=== PATIENT | female | born 1990 | race Caucasian/White ===

== ENCOUNTER 2019-08-24 19:02 | Emergency (ER) | payer OTHER, SELFPAY ==
[2019-08-24 19:14] VITALS: BP 103/67; PULSE 107; RESP 20; TEMP 38.3; O2SAT 98
--- NOTE | 2019-08-24 19:41 | ED.NAVMDI ---
HPI - Nausea/Vomiting/Diarrhea General Chief complaint: Upper Respiratory Infection Stated complaint: Throwing Up Time Seen by Provider: 08/24/19 19:35 Source: patient and RN notes reviewed Mode of arrival: ambulatory Limitations: no limitations History of Present Illness HPI Narrative: Patient presents today complaint of a 3-day history of nausea, vomiting, diarrhea, and fever up to 104.1. States she vomited several times today and has had several episodes of diarrhea. She has been occasionally taking ibuprofen for symptoms, but could not keep it down today. MD elicited complaint: nausea, vomiting and diarrhea Related Data Allergies Allergy/AdvReac Type Severity Reaction Status Date / Time codeine Allergy Mild SHORTNESS Verified 08/24/19 19:37 OF BREATH latex Allergy Mild Rash Verified 08/24/19 19:37 Review of Systems Review of Systems: Narrative: CONSTITUTIONAL: Denies chills, or sweats.+ Fever, body aches EYES: Denies visual changes, redness, or discharge. ENT: Denies rhinorrhea, congestion, sore throat, or otalgia. CARDIOVASCULAR: Denies chest pain, palpitations, or edema. RESPIRATORY: Denies cough or dyspnea. GASTROINTESTINAL: Denies abdominal pain. + Nausea, vomiting, diarrhea GENITOURINARY: Denies dysuria or hematuria. SKIN: Denies rash, itching, or wounds. MUSCULOSKELETAL: Denies back pain, joint pain, or myalgia. NEUROLOGIC: Denies headache, numbness, tingling, or weakness. PSYCH: Denies depression or anxiety. PMFSH Social History Social History Gender identity (if verbalized by the patient): Female Comments At time of signature, I have reviewed and agree with nursing past medical, surgical, social and family history unless otherwise noted. Please see nursing chart for further information. There is no relevant family history pertinent to the presenting complaint Exam Narrative: Exam Narrative: GENERAL: Ill-appearing, well-nourished, and in no acute distress. HEAD: Normocephalic, atraumatic. EYES: EOMI. No redness or drainage. Conjunctivae normal. ENT: Mucous membranes pink and moist. Nares clear. No rhinorrhea. TMs normal bilaterally. Throat normal. Uvula midline. NECK: Normal AROM. Supple. No lymphadenopathy. CHEST: No respiratory distress. Clear to auscultation. HEART: Regular rate and rhythm. No murmur appreciated. Normal peripheral pulses. ABDOMEN: Soft, nontender, nondistended, normal active bowel sounds. MUSCULOSKELETAL: No bony tenderness. EXTREMITIES: Normal range of motion. No edema. SKIN: Warm, dry, no rash. NEURO: No focal deficits. Alert and oriented x3. Gait steady. PSYCH: Normal affect. No signs of depression or anxiety. Course Vital Signs Vital signs: Vital Signs Temperature 101.0 F H 08/24/19 19:14 Pulse Rate 107 H 08/24/19 19:14 Respiratory Rate 08/24/19 19:14 Blood Pressure 103/67 08/24/19 19:14 Pulse Oximetry 98 08/24/19 19:14 Temperature 101.0 F H 08/24/19 19:14 Pulse Rate 107 H 08/24/19 19:14 Respiratory Rate 08/24/19 19:14 Blood Pressure 103/67 08/24/19 19:14 Pulse Oximetry 98 08/24/19 19:14 Reviewed. MDM - Nausea/Vomiting/Diarrhea Differential Diagnosis Differential diagnosis: Likely other (Influenza, strep throat, gastroenteritis, dehydration) Lab Data Attestation: I reviewed the patient's lab results. Labs: Influenza A Screen Negative Reference Range: Negative Influenza B Screen Positive Reference Range: Negative Strep Screen Presumptive Negative *(Reference Range: Negative)* Critical Care Time Critical Care Time Critical Care Time: No Discharge Plan Discharge Clinical Impression: Influenza B Patient Disposition: Home, Self-Care Condition: Stable Instructions: Influenza (DC) Additional Instructions: You are positive for influenza B. You will be contagious for 2 additional days. Please continue Tylenol for pain or fever. Take
== END 2019-08-24 19:47 | disposition home or self-care (01) ==
PROVIDERS: Emergency Provider Nurse Practitioner; PCP Nurse Practitioner Family
DX: J10.1 Influenza due to other identified influenza virus with other respiratory manifestations (principal)
CPT/HCPCS: 87081; 87804; 87880; 99203; G0463

== ENCOUNTER 2019-08-27 10:32 | Emergency (ER) | payer OTHER, SELFPAY ==
[2019-08-27 10:40] VITALS: BP 131/90; PULSE 109; RESP 18; TEMP 36.9; O2SAT 98
[2019-08-27 11:44] VITALS: BP 124/88; PULSE 86; RESP 19; TEMP 37; O2SAT 99
--- NOTE | 2019-08-27 13:05 | ED_ITS ---
I attest that this documentation has been prepared under the direction and in the presence of Mayra Chandler MD. Denys ChaseOctavio 08/27/19;13:05 HPI - Nausea/Vomiting/Diarrhea General Chief complaint: Nausea/Vomiting/Diarrhea Stated complaint: flu/vomiting Time Seen by Provider: 08/27/19 12:22 Source: patient and RN notes reviewed Mode of arrival: ambulatory Limitations: no limitations History of Present Illness HPI Narrative: Pt is a 29 y/o female presenting to the ED c/o POND. Pt reports she has been experiencing a diffuse, sharp POND over the past few days. Pt states her pain is currently a 4/10 in her ED bed, but notes the pain wakes her up when she's sleeping. Pt states she was diagnosed with Influenza on 08/20 and notes she has not felt better. Pt also reports N/V, lightheaded, body aches, ABD pain, poor appetite, and night sweats, but denies CP or fever. Pt states she has been taking Percocet, Ibuprofen, and Tylneol for her Sx's. Related Data Allergies Allergy/AdvReac Type Severity Reaction Status Date / Time codeine Allergy Mild SHORTNESS Verified 08/27/19 11:48 OF BREATH latex Allergy Mild Rash Verified 08/27/19 11:48 PMFSH Social History Social History Gender identity (if verbalized by the patient): Female Course Vital Signs Vital signs: Vital Signs Temperature 36.9 C 08/27/19 10:40 Pulse Rate 109 H 08/27/19 10:40 Respiratory Rate 18 08/27/19 10:40 Blood Pressure 131/90 08/27/19 10:40 Pulse Oximetry 98 08/27/19 10:40 Temperature 37.0 C 08/27/19 11:44 Pulse Rate 86 08/27/19 11:44 Respiratory Rate 19 08/27/19 11:44 Blood Pressure 124/88 08/27/19 11:44 Pulse Oximetry 99 08/27/19 11:44 Discharge Plan Discharge Prescriptions: No Action ondansetron 8 mg tablet,disintegrating 8 mg PO Q4-6H PRN (Reason: nausea and vomiting) Qty: 20 RF: 0
--- NOTE | 2019-08-27 13:14 | ED.HA ---
HPI - Headache General Chief Complaint: Nausea/Vomiting/Diarrhea Stated Complaint: flu/vomiting Time Seen by Provider: 08/27/19 12:22 Source: patient and RN notes reviewed Mode of arrival: ambulatory Limitations: no limitations History of Present Illness HPI Narrative: Pt is a 29 y/o female presenting to the ED c/o POND. Pt reports she has been experiencing a diffuse, sharp POND over the past few days. Pt states her pain is currently a 4/10 in her ED bed, but notes the pain wakes her up when she's sleeping. Pt states she was diagnosed with Influenza on 08/20 and notes she has not felt better. Pt also reports N/V, lightheaded, body aches, ABD pain, poor appetite, and night sweats, but denies CP or fever. Pt states she has been taking Percocet, Ibuprofen, and Tylneol for her Sx's. Pertinent past history: other (Influenza) Onset (ago): day(s) ( Few days) Location: other (Diffuse) Quality & Timing: sharp Associated symptoms: nausea, vomiting, lightheadedness and other (Body aches; Nausea; ABD pain; poor appetite; Night sweats) Related Data Allergies Allergy/AdvReac Type Severity Reaction Status Date / Time codeine Allergy Mild SHORTNESS Verified 08/27/19 11:48 OF BREATH latex Allergy Mild Rash Verified 08/27/19 11:48 Review of Systems Review of Systems: Narrative: Constitutional: Positive for poor appetite, night sweats, and body aches. Negative for fever. Cardiovascular: Negative for chest pain. Gastrointestinal: Positive for nausea, vomiting, and abdominal pain. Neurological: Positive for lightheadedness. All systems reviewed & are unremarkable except as noted in HPI and below PMFSH Past Medical History Medical History Anemia Anxiety Depression Ovarian cyst Scoliosis Surgical History Surgical History H/O adenoidectomy H/O dilation and curettage Social History Social History Smoking status: Unknown if ever smoked Gender identity (if verbalized by the patient): Female Exam Const: General: no acute distress and well developed Orientation/consciousness: oriented to person, oriented to place, oriented to time and patient oriented x3 HENMT: Head: normocephalic Ears: external ears normal General nose exam: Normal external nose present Eyes: General: appearance normal, both eyes and all related structures Conjunctivae: conjunctivae normal Neck: Neck: normal visual inspection and full ROM Chest: Chest palpation & inspection: normal inspection of the chest and no tenderness Resp: Effort & Inspection: normal respiratory effort Auscultation: clear to auscultation bilaterally Cardio: Rate: regular rate Rhythm: regular rhythm GI: GI Palp: No abdominal tenderness and Yes Soft to palpation Skin: General skin exam: normal color and turgor normal Neuro: General: oriented to person, oriented to place, oriented to time and patient oriented x3 Cranial nerves: Yes CN's II-XII intact bilaterally Cognition (Neuro): normal cognition Speech: normal speech Motor exam (neuro): 5/5 motor strength present throughout Sensory Exam: normal sensation Coordination: [id number] test normal and [id number] test normal Extrem: General: normal to inspection, full ROM and no pedal edema Psych: Appearance: grossly normal Mental Status: mental status grossly normal Affect: normal affect Course Reevaluation(s) Reevaluation #1: Rechecked pt. States she feels better. Will discharge. Date: 08/27/19 Time: 14:21 Vital Signs Vital signs: Vital Signs Temperature 36.9 C 08/27/19 10:40 Pulse Rate 109 H 08/27/19 10:40 Respiratory Rate 18 08/27/19 10:40 Blood Pressure 131/90 08/27/19 10:40 Pulse Oximetry 98 08/27/19 10:40 Temperature 37.0 C 08/27/19 11:44 Pulse Rate 80 08/27/19 14:55 Respiratory Rate 19 08/27/19 14:55 Blood Pressure 111/78 08/27/19 14:55 Pulse Oximetry
[2019-08-27 13:25] LABS: Basophils Percent Auto 0.2 % (0.2-1.2); Eosinophils Percent Auto 0.3 % (0-4.4); Hematocrit 40.3 % (37.0-47.0); Hemoglobin 13.7 g/dL (12.0-15.0); Immature Granulocyte Absolute 0.03 K/mm3 (0.00-0.031); Immature Granulocyte Percent A 0.3 % (0-0.5); Lymphocytes Absolute Auto 1.54 K/mm3 (0.9-3.2); Lymphocytes Percent Auto 14.5 % (18.3-44.2); Mean Corpuscular Hemoglobin 33.1 pg (26-34); Mean Corpuscular Volume 97.3 fl (80-100); Mean Platelet Volume 11.2 fl (7.4-10.4); Neutrophils Percent Auto 75.7 % (45.5-73.1); Platelet Count Result 155 k/mm3 (150-375); Red Blood Count 4.14 M/mm3 (4.2-5.4); Red Cell Distribution Width 12.5 % (11.5-14.5); White Blood Count 10.6 K/mm3 (4.5-10.0)
[2019-08-27 13:36] LABS: Add Urine Microscopic? YES; Appearance Urine Cloudy (Clear); Bacteria Urine 4+ /hpf; Bilirubin Urine Negative (Negative); Blood Urine 3+ (Negative); Color Urine Amber (Yellow); Glucose Urine UA Negative (Negative); Ketones Urine 2+ mg/dL (Negative); Leukocyte Esterase Ur 1+ LEU/UL (Negative); Mucus Urine Heavy /lpf; Nitrate Urine Positive (Negative); Protein Urine 1+ mg/dL (Negative); Specific Grav Ur 1.028 (1.001-1.035); Squamous Epithelial Cell Urine Moderate /hpf (Few); WBC Urine 31-50 /hpf
[2019-08-27 13:36] LABS: Blood Urea Nitrogen 10 mg/dL (7-17); Calcium 8.6 mg/dL (8.4-10.2); Carbon Dioxide 27 mmol/L (22-30); Chloride 101 mmol/L (98-107); Estimated Glomerular Filt Rate > 60; Glucose 94 mg/dL (65-105); Potassium 3.5 mmol/L (3.4-5.0); Sodium 137 mmol/L (137-145)
[2019-08-27] MEDS: methylPREDNISolone SOD SUCC 125 MG VIAL IV PUSH (13:38)
[2019-08-27] MEDS: SODIUM CHLORIDE 0.9% IV 1,000 ML 999 ML IV CONT (13:38)
[2019-08-27] MEDS: KETOROLAC 30 MG/ML VIAL (*BKC) IV PUSH (13:38)
[2019-08-27] MEDS: METOCLOPRAMIDE HCL INJ 10 MG/2 ML VIAL IV PUSH (13:38)
[2019-08-27 14:55] VITALS: BP 111/78; PULSE 80; RESP 19; O2SAT 100
== END 2019-08-27 14:58 | disposition home or self-care (01) ==
PROVIDERS: Emergency Provider Emergency Medicine; PCP Nurse Practitioner Family
DX: R51 Headache (principal); N39.0 Urinary tract infection, site not specified; Z86.2 Personal history of diseases of the blood and blood-forming organs and certain disorders involving the immune mechanism
CPT/HCPCS: 36415; 80048; 81001; 81025; 85025; 87077; 87086; 87088; 87186; 96361; 96374; 96375; 99284; J1200; J1885; J2765; J2930; J7030

== ENCOUNTER 2020-01-01 18:55 | Emergency (ER) | payer OTHER, SELFPAY ==
[2020-01-01 19:12] VITALS: BP 114/68; PULSE 90; RESP 16; TEMP 36.9; O2SAT 100
--- NOTE | 2020-01-01 19:37 | ED.SKABFB ---
HPI - Skin/Abscess/Foreign Bdy General Chief complaint: Skin/Abscess/Foreign Body Stated complaint: Bite Time Seen by Provider: 01/01/20 19:33 Source: patient and RN notes reviewed Mode of arrival: ambulatory Limitations: no limitations History of Present Illness HPI narrative: Patient presents today complaining of a possible infected hair follicle to the right forearm x3 days. Patient shaves her arms and is unsure whether or not she has an insect bite or an infected hair follicle. States pain and swelling have been gradually getting worse since onset. She has tried Prid salve, Bactine, and ice without relief. Patient does have history of abscesses in the past. MD complaint: abscess/boil Related Data Allergies Allergy/AdvReac Type Severity Reaction Status Date / Time codeine Allergy Mild SHORTNESS Verified 08/27/19 11:48 OF BREATH latex Allergy Mild Rash Verified 08/27/19 11:48 Review of Systems Review of Systems: Narrative: CONSTITUTIONAL: Denies body aches, fever, chills, or sweats. EYES: Denies visual changes, redness, or discharge. ENT: Denies rhinorrhea, congestion, sore throat, or otalgia. CARDIOVASCULAR: Denies chest pain, palpitations, or edema. RESPIRATORY: Denies cough or dyspnea. GASTROINTESTINAL: Denies abdominal pain, nausea, vomiting, or diarrhea. GENITOURINARY: Denies dysuria or hematuria. SKIN: Denies rash, itching. + Wound to right lower arm MUSCULOSKELETAL: Denies back pain, joint pain, or myalgia. NEUROLOGIC: Denies headache, numbness, tingling, or weakness. PSYCH: Denies depression or anxiety. PMFSH Social History Social History Smoking status: Unknown if ever smoked Gender identity (if verbalized by the patient): Female Comments At time of signature, I have reviewed and agree with nursing past medical, surgical, social and family history unless otherwise noted. Please see nursing chart for further information. There is no relevant family history pertinent to the presenting complaint Exam Narrative: Exam Narrative: GENERAL: Well-appearing, well-nourished, and in no acute distress. HEAD: Normocephalic, atraumatic. EYES: EOMI. No redness or drainage. Conjunctivae normal. ENT: Mucous membranes pink and moist. NECK: Normal AROM. CHEST: No respiratory distress. EXTREMITIES: Normal range of motion. No edema. SKIN: Warm, dry, no rash. Capillary refill normal. Normal skin turgor. 3x3cm area of erythema and induration to anterior right forearm with 3mm scab in center. Tender to palpation. NEURO: No focal deficits. Alert and oriented x3. Gait steady. PSYCH: Normal affect. No signs of depression or anxiety. Course Vital Signs Vital signs: Vital Signs Temperature 98.4 F 01/01/20 19:12 Pulse Rate 90 01/01/20 19:12 Respiratory Rate 16 01/01/20 19:12 Blood Pressure 114/68 01/01/20 19:12 Pulse Oximetry 100 01/01/20 19:12 Temperature 98.4 F 01/01/20 19:12 Pulse Rate 90 01/01/20 19:12 Respiratory Rate 16 01/01/20 19:12 Blood Pressure 114/68 01/01/20 19:12 Pulse Oximetry 100 01/01/20 19:12 Reviewed Procedures Abscess I/D upper extremity: Date of Incision: 01/01/20 Time of Incision: 19:45 Side (if applicable): right Local Anesthetic: none Irrigation: No Packing used?: none I&D Results: Pus (Scant) Abcess I&D Additional Comments: Scalpel was used to peel away the scab in the center of the wound. Incision was not made. Dressed with Band-Aid. Cleansed with alcohol MDM - Skin/Abscess/Foreign Bdy Differential Diagnosis Differential diagnosis: Likely abscess of skin or subcutaneous tissue, cellulitis, insect bites and impetigo Critical Care Time Critical Care Time Critical Care Time: No Discharge Plan Discharge Clinical Impression: Abscess of forearm, right, Cellulitis of forearm, right Patient Disposition: Home, Self-Care Condition: Stable
== END 2020-01-01 19:52 | disposition home or self-care (01) ==
PROVIDERS: Emergency Provider Nurse Practitioner; PCP Nurse Practitioner Family
DX: L02.413 Cutaneous abscess of right upper limb (principal); L03.113 Cellulitis of right upper limb
CPT/HCPCS: 99213; G0463

== ENCOUNTER 2022-06-30 09:49 | Emergency (ER) | payer OTHER, SELFPAY ==
[2022-06-30 10:01] VITALS: BP 133/76; PULSE 78; RESP 16; TEMP 36.7; O2SAT 99
--- NOTE | 2022-06-30 11:28 | ED.URI ---
HPI - URI/Sore Throat General Chief Complaint: Upper Respiratory Infection Stated Complaint: SOB; stuffy nose; diarrhea; fever Time Seen by Provider: 06/30/22 11:28 Source: patient, RN notes reviewed and old records reviewed Mode of arrival: ambulatory Limitations: no limitations History of Present Illness HPI Narrative: 32-year-old female who presents to [facility] patient reports she does feel well with complaints of stuffy nose, headache,body aches, decreased taste and smell with fever up 101.3F evening. States she has been taking Tylenol cold and Flu has to also has taken 1 dose of Claritin D. Patient reports she does have some pressure feelings in her ears especially right states has had ear tubes in the past. Patient request COVID test..Patient reports that she had COVID in 2019 and she has not had vaccinations, has had flu shot. MD elicited complaint: fever, cough and other (headache,stuffy nose decreased taste and smell) Pain scale (0-10): 4 Treatments prior to arrival: other (tylenol cold and flu, Claritin D) Related Data Allergies Allergy/AdvReac Type Severity Reaction Status Date / Time codeine Allergy Mild SHORTNESS Verified 06/30/22 10:43 OF BREATH latex Allergy Mild Rash Verified 06/30/22 10:43 Review of Systems Review of Systems: CONSTITUTIONAL: Reports malaise, chills, sweats, or fever. EYES: Denies visual changes, redness, or discharge. ENT: Reports rhinorrhea, congestion, sinus pain,right otalgia no sore throat. CARDIOVASCULAR: Denies chest pain, palpitations, or edema. RESPIRATORY: Reports cough.? Denies dyspnea. GASTROINTESTINAL: Denies abdominal pain, nausea, vomiting, diarrhea SKIN: Denies rash or itching. MUSCULOSKELETAL: reports myalgia. NEUROLOGIC: Reports headache. All systems reviewed & are unremarkable except as noted in HPI and below PMFSH Past Medical History Medical History (Updated 07/01/22 @ 00:00 by Gerard Maciel) Anemia Anxiety Depression Ovarian cyst Scoliosis Surgical History Surgical History H/O adenoidectomy H/O dilation and curettage Social History Social History (Updated 07/01/22 @ 08:12 by Janet Casanova NP) Smoking status: Current every day smoker Alcohol intake: current Alcohol use details: social Substance use type: does not use Gender identity (if verbalized by the patient): Female Comments At time of signature, agree with nursing past medical, surgical, social and family history. There is no relevant family history pertinent to the presenting complaint Exam Narrative: GENERAL: Well-appearing, well-nourished, and in no acute distress. HEAD: Normocephalic EYES: PERRLA, conjunctivae clear ENT: Nares clear, turbinates edematous and erythematous, clear discharge. Mucous membranes moist. Right TM red,left TM pearly malik with dull light reflex; no tragal tenderness. Oropharynx erythematous without lesions. Tonsils not enlarged and without exudate, no drooling, no hoarseness, no trismus, uvula midline.some post nasal drainage. NECK: Supple. No lymphadenopathy CHEST: Clear to auscultation, breath sounds equal. No wheezing, rhonchi, rales, or stridor. No respiratory distress, speaks in full sentences.SAO2 99% on room air, dry cough SAO2 99% on room air HEART: Regular rate and rhythm. No murmur heard. SKIN: Warm, dry, no rash. NEURO: Alert and oriented x3. PSYCH: Normal mood and affect Course Course Emergency Course: Patient is aware of diagnosis, understands and agrees to treatment plan.? Anticipatory guidance given.? Patient agrees to follow-up as directed and is aware of reasons to seek care at the emergency department. Portions of this record may have been created with voice recognition software Level of Care: [facility] Visit Vital Signs Vital signs: Vital Signs Temperature 36.7 C 06/30/22 10:01 Pulse Rate 78 06/30/22 10:01 Respiratory Rate 16
== END 2022-06-30 11:52 | disposition home or self-care (01) ==
PROVIDERS: Emergency Provider Registered Nurse; PCP Nurse Practitioner Family
DX: H66.91 Otitis media, unspecified, right ear (principal); Z20.822 Contact with and (suspected) exposure to COVID-19; F17.210 Nicotine dependence, cigarettes, uncomplicated; M41.9 Scoliosis, unspecified
CPT/HCPCS: 87426; 99213; C9803; G0463

== ENCOUNTER 2023-11-19 09:51 | Emergency (ER) | payer MEDICAID, SELFPAY ==
--- NOTE | ~2023-11-19 | CT_ITS ---
CT of the Abdomen and Pelvis: Indication: Ovarian cyst Technique: 2.5 mm axial scans were obtained through the abdomen and pelvis following intravenous adm inistration of 100 cc of Omnipaque 350. Dose reduction technique was used on this scan by utilizing a utomated exposure control and iterative reconstruction technique. The dose-length product (DLP) was 3 14.14 mGy-cm. Findings: Scans through the lung bases are unremarkable. The liver, spleen, pancreas, gallbladder, adrenals and kidneys are within normal limits. No evidence of aortic aneurysm. No lymphadenopathy. No bowel obstruction or bowel wall thickening. There is no evidence to suggest acute appendicitis. Images through the pelvis were performed. Urinary bladder unremarkable. No pelvic mass seen. No ascit es. Impression: No significant abnormalities seen. Reviewed, dictated and finalized at location . Impression: No significant abnormalities seen.
[2023-11-19 09:55] VITALS: BP 125/98; PULSE 77; RESP 16; TEMP 36.6; O2SAT 100
[2023-11-19 10:15] LABS: Basophils Absolute Auto 0.1 K/mm3 (0.0-0.1); Basophils Percent Auto 0.7 % (0.2-1.2); Eosinophils Absolute Auto 0.1 K/mm3 (0-0.3); Eosinophils Percent Auto 0.8 % (0-4.4); Hematocrit 43.2 % (37.0-47.0); Hemoglobin 14.6 g/dL (12.0-15.0); Immature Granulocyte Absolute 0.03 K/mm3 (0.00-0.031); Immature Granulocyte Percent A 0.4 % (0-0.5); Lymphocytes Absolute Auto 1.31 K/mm3 (0.9-3.2); Lymphocytes Percent Auto 15.4 % (18.3-44.2); Mean Corpuscular HGB Conc 33.8 g/dl (32-36); Mean Corpuscular Hemoglobin 34.1 pg (26-34); Mean Corpuscular Volume 100.9 fl (80-100); Mean Platelet Volume 10.9 fl (7.4-10.4); Monocytes Absolute Auto 0.7 K/mm3 (0.1-0.6); Monocytes Percent Auto 8.6 % (2.6-8.5); Neutrophils Absolute Auto 6.3 K/mm3 (1.3-6.7); Neutrophils Percent Auto 74.1 % (45.5-73.1); Platelet Count Result 229 k/mm3 (150-375); Red Blood Count 4.28 M/mm3 (4.2-5.4); Red Cell Distribution Width 13.3 % (11.5-14.5); White Blood Count 8.5 K/mm3 (4.5-10.0)
--- NOTE | 2023-11-19 10:18 | ED.FEMALEGU ---
HPI - Female Genitourinary General Chief complaint: Urogenital-Female Stated complaint: female issues doesn't feel right Time Seen by Provider: 11/19/23 10:09 Source: patient Mode of arrival: ambulatory Limitations: no limitations History of Present Illness HPI Narrative: Sarah is a 33-year-old female patient presenting to the emergency room with complaints night sweats, left sided pelvic pain, fatigue, and some nausea that started over the weekend. Report last sexual activity was on Saturday. She is having cramping over the lower abdomen and the left pelvic area. History of ovarian cyst with history of laparoscopic surgery to remove cyst. States that her urine is cloudy. Denies any abnormal discharge in the vagina however she does have some bleeding when she wipes. Related Data Allergies Allergy/AdvReac Type Severity Reaction Status Date / Time codeine Allergy Mild SHORTNESS Verified 11/19/23 10:02 OF BREATH latex Allergy Mild Rash Verified 11/19/23 10:02 Review of Systems Review of Systems: Pertinent positives per HPI. Patient denies any fever, chills, rash, headache, visual changes, dizziness, cough, runny nose, sore throat, shortness of breath, chest pain, palpitations, vomiting, diarrhea, constipation. [facility] Past Medical History Medical History (Updated 11/19/23 @ 11:09 by Robin Ragsdale APRN) Anemia Anxiety Depression Ovarian cyst Scoliosis Surgical History Surgical History H/O adenoidectomy H/O dilation and curettage Social History Social History Smoking status: Current every day smoker Alcohol intake: current Alcohol use details: social Substance use type: does not use Gender identity (if verbalized by the patient): Female Comments At the time of my signature, I reviewed and agree with the nursing past medical, surgical, social, and family history. There is no relevant family history pertinent to the patient complaint. Exam Narrative: General: Well-developed, well nourished, in no apparent distress Head: Normocephalic, atraumatic. Cardio: Regular rate and rhythm, s1 and s2 normal, no murmur appreciated. Resp: Clear to auscultation bilaterally, no rhonchi, rales, wheezing or rubs. Abdomen: Soft, pliable, bowel sounds present in all quadrants, left lower quadrant/pelvis tenderness to palpation, no CVAT tenderness. : Deferred Course Course Emergency Course: Portions of this record may have been created with voice recognition software. Vital Signs Vital signs: Vital Signs Temperature 36.6 C 11/19/23 09:55 Pulse Rate 77 11/19/23 09:55 Respiratory Rate 16 11/19/23 09:55 Blood Pressure 125/98 H 11/19/23 09:55 Pulse Oximetry 100 11/19/23 09:55 Oxygen Delivery Room Air 11/19/23 09:55 Temperature 36.6 C 11/19/23 09:55 Pulse Rate 77 11/19/23 09:55 Respiratory Rate 16 11/19/23 09:55 Blood Pressure 125/98 H 11/19/23 09:55 Pulse Oximetry 100 11/19/23 09:55 Oxygen Delivery Room Air 11/19/23 09:55 Vital signs reviewed MDM - Female Genitourinary MDM Narrative Medical decision making narrative: At the time of visit patient is resting comfortably on the exam table. Patient appears to be nontoxic. Labs: CBC shows white blood cell count of 8.5, H&H of 14.6 and 43.2, MCV of 100.9 with MCH of 34.1. Platelet count is 229, MPV is 10.9, left-sided shift, chemistry panel is unremarkable, urinalysis shows turbid urine with 3+ blood, nitrate positive, 3+ leukocytes, 51-100 white blood cells with 4+ bacteria., gonorrhea, Trichomonas, and chlamydia testing, Diagnostics: CT abdomen shows no acute intra-abdominal process. Medications given: 1 L of normal saline and Rocephin 1 g IV piggyback Plan: I suspect patient has a urinary tract infection. Will send in prescription for Bactrim. Supportive measures were
[2023-11-19 10:20] LABS: Appearance Urine Turbid (Clear); Bacteria Urine 4+ /hpf; Bilirubin Urine Negative (Negative); Blood Urine 3+ (Negative); Color Urine Yellow (Yellow); Glucose Urine UA Negative (Negative); Ketones Urine Negative (Negative); Leukocyte Esterase Ur 3+ LEU/UL (Negative); Nitrate Urine Positive (Negative); Protein Urine Trace mg/dL (Negative); RBC Urine 0-2 /hpf (0-2); Specific Grav Ur 1.018 (1.001-1.035); Squamous Epithelial Cell Urine Few /hpf (Few); WBC Urine 51-100 /hpf (0-3); pH Urine 7.5 (5.0-9.0)
[2023-11-19 10:23] LABS: Add Urine Microscopic? YES
[2023-11-19 10:25] LABS: Alanine Aminotransferase 21 U/L (6-35); Albumin Level 4.5 g/dL (3.5-5.1); Alkaline Phosphatase 82 U/L (38-126); Anion Gap 8 mmol/L (4-12); Aspartate Amino Transferase 26 U/L (14-36); Bilirubin,Total 0.5 mg/dL (0.2-1.3); Blood Urea Nitrogen 8 mg/dL (7-17); Calcium 9.1 mg/dL (8.4-10.2); Carbon Dioxide 26 mmol/L (22-30); Chloride 106 mmol/L (98-107); Estimated Glomerular Filt Rate > 60; Glucose 107 mg/dL (65-110); Sodium 140 mmol/L (137-145)
[2023-11-19] MEDS: SODIUM CHLORIDE 0.9% IV 1,000 ML 999 ML IV CONT (10:58)
== END 2023-11-19 11:51 | disposition home or self-care (01) ==
PROVIDERS: Family Medicine; Emergency Provider Nurse Practitioner Family; PCP Nurse Practitioner Family
DX: N30.01 Acute cystitis with hematuria (principal); F17.200 Nicotine dependence, unspecified, uncomplicated; Z86.2 Personal history of diseases of the blood and blood-forming organs and certain disorders involving the immune mechanism
CPT/HCPCS: 36415; 74177; 80053; 81001; 81025; 85025; 87077; 87086; 87088; 87186; 96365; 99284; J0696; J7030; Q9967